=== PATIENT | female | born 1995 | race Caucasian/White ===

== ENCOUNTER 2018-04-29 08:00 | Outpatient (CLI) | payer BC, MEDICAID ==
[2018-04-29 19:39] LABS: THYROID STIMULATING HORMONE 1.14 uIU/mL (0.34-5.60)
[2018-04-29 20:06] LABS: FOLLICLE STIMULATING HORMONE 5.69 mIU/mL
[2018-04-29 20:07] LABS: LUTEINIZING HORMONE 8.12 mIU/mL
== END 2018-04-29 23:59 ==
LOC: LAB.N 08:00
PROVIDERS: ATTEND Obstetrics & Gynecology
DX: N94.6 Dysmenorrhea, unspecified (principal); N92.0 Excessive and frequent menstruation with regular cycle
CPT/HCPCS: 36415; 83001; 83002; 84443

== ENCOUNTER 2018-04-29 08:00 | Outpatient (CLI) | payer BC | END 2018-04-29 23:59 | disposition home or self-care (01) | LOC: LAB.R 08:00 | PROVIDERS: ATTEND Obstetrics & Gynecology | DX: N94.6 Dysmenorrhea, unspecified (principal); N92.0 Excessive and frequent menstruation with regular cycle; N89.8 Other specified noninflammatory disorders of vagina | CPT/HCPCS: 87480; 87510; 87660 ==

== ENCOUNTER 2018-05-11 16:59 | Outpatient (CLI) | payer BC ==
--- NOTE | 2018-05-12 10:50 | Ultrasound Report ---
Reason: DYSMENORRHEA,MENORRHAGIA Procedure Date: 05/11/2018 Accession Number: [id number] / [id number] Procedure: US - Pelvic w/Transvaginal CPT Code: FULL RESULT: EXAM: PELVIC ULTRASOUND EXAM DATE: 05/11/2018 05:32 PM. CLINICAL HISTORY: Dysmenorrhea, menorrhagia. COMPARISON: None. TECHNIQUE: Realtime transabdominal pelvic scan performed to identify the uterus and adnexa and as an overview of other pelvic structures, followed by transvaginal scan to provide greater detail of the uterus and adnexa, with static image documentation. FINDINGS: Uterus: 6.2 x 3.5 x 4.6 cm, volume 52.2 cc. Retroverted and retroflexed position. Normal overall size and echotexture. Masses: None. Endometrium: 6 mm. No endometrial mass or polyp. Cervix: Multiple nabothian cysts are noted. No mass. Right Ovary: 2.5 x 2.2 x 1.8 cm, volume 5.2 cc. Normal echotexture and blood flow. Small subcentimeter simple follicles. Left Ovary: 2 x 3.8 x 2.1 cm, volume 8.3 cc. Normal echotexture and blood flow. Free Fluid: None. Other: Incomplete filling of the bladder limiting the transabdominal portion of the study. IMPRESSION: 1. No uterine fibroids. 2. No endometrial mass or polyp. 3. Incidental subcentimeter normal-appearing follicles. Otherwise, both ovaries and adnexa are normal. RADIA
== END 2018-05-11 17:00 | disposition home or self-care (01) ==
LOC: DI 16:59
PROVIDERS: ATTEND Obstetrics & Gynecology
DX: N94.6 Dysmenorrhea, unspecified (principal); N92.0 Excessive and frequent menstruation with regular cycle
CPT/HCPCS: 76830; 76856

== ENCOUNTER 2018-05-25 15:52 | Outpatient (CLI) | payer BC ==
[2018-05-26 11:12] LABS: HEPATITIS B SURFACE ANTIGEN NON-REACTIVE (NON-REACTIVE); HEPATITIS C ANTIBODY NON-REACTIVE (NON-REACTIVE)
[2018-05-26 13:12] LABS: HIV AG/AB 4TH GEN NON-REACTIVE (NON-REACTIVE)
[2018-05-27 12:51] LABS: HSV 1 IGG TYPE SPECIFIC AB 4.13 index; HSV 2 IGG TYPE SPECIFIC AB <0.90 index
== END 2018-05-25 15:53 | disposition home or self-care (01) ==
LOC: LAB 15:52
PROVIDERS: ATTEND Obstetrics & Gynecology
DX: Z71.89 Other specified counseling (principal)
CPT/HCPCS: 36415; 81599; 86592; 86695; 86696; 86803; 87340; 87389

== ENCOUNTER 2018-05-26 08:00 | Outpatient (CLI) | payer BC | END 2018-05-26 23:59 | disposition home or self-care (01) | LOC: LAB.R 08:00 | PROVIDERS: ATTEND Obstetrics & Gynecology | DX: Z71.89 Other specified counseling (principal) | CPT/HCPCS: 87491; 87591 ==

== ENCOUNTER 2019-01-04 07:00 | Outpatient (CLI) | payer BC ==
[2019-01-04 19:35] LABS: BILIRUBIN,URINE NEGATIVE (NEGATIVE); GLUCOSE, URINE (UA) NEGATIVE (NEGATIVE); KETONES,URINE (UA) NEGATIVE (NEGATIVE); LEUKOCYTE ESTERASE, URINE NEGATIVE (NEGATIVE); NITRITE,URINE NEGATIVE (NEGATIVE); OCCULT BLOOD,URINE NEGATIVE (NEGATIVE); PH,URINE 6.5 PH (5.0-7.5); PROTEIN,URINE NEGATIVE (NEGATIVE); UROBILINOGEN,URINE 0.2 (NORMAL) E.U./dL (NORMAL)
[2019-01-04 19:42] LABS: CLARITY,URINE CLEAR (CLEAR)
== END 2019-01-04 23:59 | disposition home or self-care (01) ==
LOC: LAB.R 07:00
PROVIDERS: ATTEND Nurse Practitioner Family
DX: R39.15 Urgency of urination (principal)
CPT/HCPCS: 81001; 81003; 87086

== ENCOUNTER 2019-01-21 08:00 | Outpatient (CLI) | payer BC ==
[2019-01-21 12:10] LABS: BASOPHILS % (AUTO) 0.7 %; EOSINOPHILS # (AUTO) 0.1 10^3/uL (0.0-0.7); EOSINOPHILS % (AUTO) 1.4 %; HGB - HEMOGLOBIN 12.7 g/dL (12.0-16.0); LYMPHOCYTES # (AUTO) 1.9 10^3/uL (1.5-3.5); LYMPHOCYTES % (AUTO) 33.6 %; MEAN CORPUSCULAR HEMOGLOBIN 26.1 pg (27.0-31.0); MEAN CORPUSCULAR VOLUME 84.4 fL (81.0-99.0); MEAN PLATELET VOLUME 11.2 fL (7.9-10.8); MONOCYTES # (AUTO) 0.6 10^3/uL (0.0-1.0); MONOCYTES % (AUTO) 10.5 %; NEUTROPHILS % (AUTO) 53.4 %; PLT - PLATELET COUNT 322 10^3/uL (130-450); RED BLOOD COUNT 4.86 10^6/uL (4.20-5.40); RED CELL DISTRIBUTION WIDTH 13.1 % (12.0-15.0); WHITE BLOOD COUNT 5.5 x10^3/uL (4.8-10.8)
[2019-01-21 12:36] LABS: CALCIUM 9.2 mg/dL (8.5-10.3)
[2019-01-21 13:32] LABS: ALBUMIN 4.3 g/dL (3.2-5.5); ALBUMIN/GLOBULIN RATIO 1.3 (1.0-2.2); BILIRUBIN,TOTAL 0.5 mg/dL (0.2-1.0); CREATININE 0.9 mg/dL (0.4-1.0); TOTAL PROTEIN 7.7 g/dL (6.7-8.2)
== END 2019-01-21 23:59 | disposition home or self-care (01) ==
LOC: LAB.WCP 08:00
PROVIDERS: ATTEND Nurse Practitioner Family
DX: R35.0 Frequency of micturition (principal)
CPT/HCPCS: 36415; 80053; 85025

== ENCOUNTER 2019-06-08 11:26 | Outpatient (CLI) | payer OTHER | END 2019-06-08 11:27 | disposition home or self-care (01) | LOC: NS 11:26 | PROVIDERS: ATTEND Nurse Practitioner Family | DX: Z71.3 Dietary counseling and surveillance (principal); E66.9 Obesity, unspecified; Z68.37 Body mass index [BMI] 37.0-37.9, adult | CPT/HCPCS: 97802 ==

== ENCOUNTER 2019-08-09 12:00 | Outpatient (CLI) | payer OTHER | END 2019-08-09 12:01 | disposition home or self-care (01) | LOC: NS 12:00 | PROVIDERS: ATTEND Nurse Practitioner Family | DX: Z71.3 Dietary counseling and surveillance (principal); E66.9 Obesity, unspecified; Z68.37 Body mass index [BMI] 37.0-37.9, adult ==

== ENCOUNTER 2019-09-02 07:05 | Outpatient (CLI) | payer OTHER ==
[2019-09-02 12:13] LABS: HB2 TOTAL 13.5 g/dL; HEMOGLOBIN A1C 0.47 g/dL; HEMOGLOBIN A1C % 5.3 % (4.6-6.2)
[2019-09-03 05:33] LABS: PROGESTERONE 0.7 ng/mL
== END 2019-09-02 23:59 | disposition home or self-care (01) ==
LOC: LAB.WCP 07:05
PROVIDERS: ATTEND Nurse Practitioner Family
DX: E28.2 Polycystic ovarian syndrome (principal)
CPT/HCPCS: 36415; 81599; 82626; 82670; 83036; 83520; 84144; 84403; 84443

== ENCOUNTER 2020-01-23 21:27 | Outpatient (CLI) | payer OTHER | END 2020-01-23 21:28 | disposition home or self-care (01) | LOC: COV 21:27 | PROVIDERS: ATTEND Family Medicine | DX: Z20.828 Contact with and (suspected) exposure to other viral communicable diseases (principal) ==

== ENCOUNTER 2020-02-19 00:59 | Emergency (ER) | payer OTHER ==
[2020-02-19] MEDS ORDERED: ONDANSETRON ODT 4 MG TABLET TL STA (01:25)
--- NOTE | 2020-02-19 01:54 | ED Physician Documentation ---
History of Present Illness - Stated complaint Stated Complaint: LT ARM/BACK PX - Chief complaint Chief Complaint: Ext Problem - History obtained from History obtained from: Patient - Additonal information Additional information: Emergency department with chief complaint of "I think I am having a heart attack". Patient states that she has been having pain in her left upper abdomen and substernal area for the last week on and off. She states that she has episodes that last for a few minutes and involve an ache punctuated by sharper pains. She states that she has been having 1-2 of those episodes a day, not brought on by anything in particular. Today, patient has noticed more episodes, but still brief and with no symptoms in between. She states that she has noticed that the pain is worse when she takes a deep breath. Patient states that she also noticed a pain in her upper arm and left shoulder, but that the pain was made worse by moving her arm. Patient does note that she has been na useated all day and has had diffuse crampy abdominal pain. No fevers or chills. No cough. No shortness of breath. Patient has no history of diabetes, hypertension, or smoking. No family history of MIs at a young age. No lower extremity edema or calf pain. No history of DVT. No recent long trips. Patient states she does have a history of anxiety and has had periods of indigestion. She does note that she is currently taking hormonal therapy to try to assist in conceiving a child. She was recently on one hormonal treatment and then was on Clomid for 5 days after that. She states her last Clomid was 5 days ago. The pt denies current symptoms. Review of Systems Ten Systems: 10 systems reviewed and negative Constitutional: reports: Reviewed and negative Eyes: reports: Reviewed and negative Ears: reports: Reviewed and negative Nose: reports: Reviewed and negative Throat: reports: Reviewed and negative Cardiac: reports: Chest pain / pressure Respiratory: reports: Reviewed and negative GI: reports: Abdominal Pain, Nausea. denies: Vomiting : reports: Reviewed and negative Skin: reports: Reviewed and negative Musculoskeletal: reports: Extremity pain, Joint pain Neurologic: reports: Reviewed and negative Psychiatric: reports: Reviewed and negative Endocrine: reports: Reviewed and negative Immunocompromised: reports: Reviewed and negative PD PAST MEDICAL HISTORY - Past Medical History Past Medical History: Yes Psych: Depression, Anxiety Other Past Medical History: PCOS - Past Surgical History Past Surgical History: Yes HEENT: Tonsil/Adenoidectomy - Present Medications Home Medications: Ambulatory Orders Medication Instructions Recorded Confirmed Metformin HCl [Glucophage Xr] 500 mg PO BID 02/19/20 02/19/20 Ondansetron Odt [Zofran] 4 mg TL Q6H PRN #10 tablet 02/19/20 Venlafaxine ER [Effexor ER] 1 cap PO DAILY 02/19/20 02/19/20 buPROPion [Wellbutrin Xl] 150 mg PO DAILY 02/19/20 02/19/20 - Allergies Allergies/Adverse Reactions: Allergies Allergy/AdvReac Type Severity Reaction Status Date / Time nitrofurantoin Allergy Hives Verified 02/19/20 01:27 [From Macrobid] - Social History Does the pt smoke?: No Smoking Status: Never smoker Does the pt drink ETOH?: Yes Does the pt have substance abuse?: No - Immunizations Immunizations are current?: Yes - POLST Patient has POLST: No PD ED PE NORMAL - Vitals Vital signs reviewed: Yes - General General: Alert and oriented X 3, Other (Patient is tearful and appears quite anxious, but otherwise in no apparent distress.) - HEENT HEENT: Atraumatic, PERRL, EOMI, Moist mucous membranes - Neck Neck: Supple, no meningeal sign - Cardiac Cardiac: RRR, No murmur, Strong equal pulses - Respiratory Respiratory: No respiratory distress, Clear bilaterally - Abdomen Abdomen: Soft, Non distended, Other (Mild diffuse tenderness throughout entire abdomen, without focus. No rebound or guarding.) - Derm Derm: Warm and dry - Extremities Extremities: No deformity - Neuro Neuro: Alert and oriented X 3 - Psych Psych: Normal mood, Normal affect Results - Vitals Vitals: Vital Signs - 24 hr 02/19/20 02/19/20 01:05 02:05 Temperature 36.4 C L 36.5 C Heart Rate 95 86 Respiratory 18 16 Rate Blood Pressure 148/101 H 131/90 H O2 Saturation 99 100 Oxygen O2 Source Room air - EKG (time done) 0130 Rate: Rate (enter#) (97) Rhythm: NSR [place]: Normal Intervals: Normal NM QRS: Normal Ischemia: Normal ST segments, Non specific changes Compare to prior EKG: Old EKG unavailable Computer interpretation: Agree with computer - Rads (name of study) Chest XR Radiology: Final report received, EMP read indepedently, See rad report (neg) PD MEDICAL DECISION MAKING - ED course Complexity details: reviewed results, re-evaluated patient, considered differential, d/w patient ED course: I discussed with the patient that she is extremely low risk for coronary artery disease and that I do not have a high suspicion for this, based on what she is described. The patient was worked up with EKG and chest x-ray, which were both unremarkable. I offered her medication for anxiety in the emergency department, and she did appear quite anxious and did have a history of this, but the patient declined. She did except something for nausea as she has been nauseated today. I discussed with the patient that her GI symptoms have just started and are very mild and nonfocal. It is very much possible that she has one of the viral illnesses that are going around right now. We have discussed that if she has further concerns about her indigestion or any other stomach issues, she may follow-up with her primary care physician and may discuss having endoscopy done if this is deemed appropriate. However, there is no evidence of an emergent condition that would raise indication for an emergent work-up here in the emergency department. We have discussed the usual indications for return. Departure - Departure Disposition: 01 Home, Self Care Clinical Impression: Nausea Chest pain Qualifiers: Chest pain type: chest pain on breathing Qualified Code(s): R07.1 - Chest pain on breathing Abdominal pain Qualifiers: Abdominal location: generalized Qualified Code(s): R10.84 - Generalized abdominal pain Condition: Stable Instructions: ED Chest Pain NonCardiac Prescriptions: Ondansetron Odt [Zofran] 4 mg TL Q6H PRN #10 tablet PRN Reason: Nausea / Vomiting Comments: Your EKG and chest x-ray look good. There is no evidence whatsoever of a serious cause of your symptoms. You do not have any risk factors for a heart attack at this time. The generally recognized risk factors include smoking, diabetes, high blood pressure, personal known history of coronary artery disease, family history of coronary artery disease/"heart attack" at a similar age as the patient, and for women, age 50 or greater. Just your young age alone makes it extremely unlikely that you would have a heart attack. Even if you did have some of the risk factors listed, such as diabetes, high blood pressure, or smoking, it takes time to do damage to the cardiovascular system, and generally the effects of these things are not seen for decades. This is why it is exceedingly rare for young adults of any health status to have a heart attack. The symptoms you have described sound more musculoskeletal than anything. Your chest x-ray does not reveal any evidence of aneurysm, pneumonia, pneumothorax (a hole in the lung) or any other concerning abnormality. If you continue to have symptoms of upset stomach and stomach/chest pain, you will need to follow-up with your primary care physician to discuss whether you should have an endoscopy to look at your stomach and esophagus with a camera. Please take the nausea medication as needed to help with symptoms. Discharge Date/Time: 02/19/20 02:13
[2020-02-19 02:13] VITALS: BP 131/90
--- NOTE | 2020-02-19 10:29 | XRAY Report ---
PROCEDURE: Chest 1 View X-Ray INDICATIONS: chest pain TECHNIQUE: One view of the chest was acquired. COMPARISON: None. FINDINGS: Surgical changes and devices: None. Lungs and pleura: No pleural effusions or pneumothorax. Lungs are clear. Mediastinum: Mediastinal contours appear normal. Heart size is normal. Bones and chest wall: No suspicious bony lesions. Overlying soft tissues appear unremarkable. IMPRESSION: No acute cardiopulmonary disease. No significant discrepancy with the preliminary interpretation. Reviewed by: Irina Hanson MD on 02/19/2020 10:27 AM [facility] Approved by: Irina Hanson MD on 02/19/2020 10:27 AM [facility] Station ID: [id number]
== END 2020-02-19 02:13 | disposition home or self-care (01) ==
LOC: ED 00:59
DX: R07.1 Chest pain on breathing (principal); R10.84 Generalized abdominal pain
CPT/HCPCS: 71045; 93005; 99283; 99284; Q0162

== ENCOUNTER 2020-04-14 09:11 | Outpatient (CLI) | payer OTHER ==
[2020-04-14 10:15] LABS: HCG,QUALITATIVE BLOOD POSITIVE
== END 2020-04-14 09:12 | disposition home or self-care (01) ==
LOC: LAB 09:11
PROVIDERS: ATTEND Nurse Practitioner Family
DX: Z30.9 Encounter for contraceptive management, unspecified (principal)
CPT/HCPCS: 36415; 84703